=== PATIENT | female | born 1945 | race Caucasian/White ===

== ENCOUNTER → 2021-10-10 15:40 | Outpatient (CLI) | payer MEDICARE, SELFPAY ==
--- NOTE | 2021-10-10 | DI.MG.S_ITS ---
BILATERAL DIGITAL SCREENING MAMMOGRAM 3D/2D WITH CAD: 10/10/2021 CLINICAL: Routine screening. Comparison is made to exams dated: 09/19/2017 mammogram, 06/06/2016 mammogram, and 06/02/2015 mammogram - [facility]. The tissue of both breasts is heterogeneously dense. This may lower the sensitivity of mammography. Current study was also evaluated with a Computer Aided Detection (CAD) system. No significant masses, calcifications, or other findings are seen in either breast. There has been no significant interval change. IMPRESSION: NEGATIVE There is no mammographic evidence of malignancy. A 1 year screening mammogram is recommended. This exam was interpreted at Station ID: [id number]. NOTE: For mammograms, a report in lay terms will be sent to the patient. Approximately 15% of breast malignancies will not be visualized mammographically. In the management of a palpable breast mass, a negative mammogram must not discourage biopsy of a clinically suspicious lesion. Electronically Signed By: Coy melton/laura:10/10/2021 16:08:28 letter sent: Normal Exam ACR BI-RADS Category 1: Negative [id number]
--- NOTE | 2021-10-10 | DI.ECHO.S_ITS ---
[place] [facility]---------+ [facility] +---------+ : : [address] : : : : [id number] : : : : Phone: [phone]+ Echocardiogram Report + + :Name: REINALDO DICKSON Study Date: 10/10/2021 Height: 63.5 in: :[facility] ReadingLocation: Weight: 134 lb : : Gender: Female BSA: 1.6 m2 : :: 1945 Age: 76 yrs BP: 139/89 mmHg: :Reason For Study: MITRAL INSUFFICIENCY : :Ordering Physician: BEN : :KARLENE Performed By: Merari Meredith : :Referring: KARLENE CONTRERAS : + + Interpretation Summary Normal sinus rhythm. Normal LV size; mild concentric LVH; normal wall motion and LV systolic function. EF is 70-75% Stage I diastolic dysfunction. Mild LA enlargement. Mild MAC with mild associated MR Mild AI No prior study available for comparison. Procedure: A two-dimensional transthoracic echocardiogram with color flow and Doppler was performed. The study quality was technically adequate. Comparison is made with the echocardiogram of 09/14/2011. The patient was in sinus rhythm with heart rates between 63-75 bpm during the exam. Left Ventricle: Left ventricular wall thickness is mildly increased. Proximal septal thickening is noted. The left ventricle is normal in size. The ejection fraction is estimated to be 70-75%. Right Ventricle: The right ventricle is normal in size and function. Atria: The left atrium is mildly dilated. Right atrial size is normal. There is no Doppler evidence for an interatrial shunt. Mitral Valve: There is mild mitral annular calcification. There is mild mitral regurgitation. Aortic Valve: The aortic valve is not well visualized. There is no aortic valve stenosis. There is mild aortic regurgitation. Tricuspid Valve: The tricuspid valve is normal in structure and function. There is trace tricuspid regurgitation. Pulmonic Valve: The pulmonic valve is not well visualized. There is no pulmonic valvular regurgitation. Great Vessels: The aortic root is normal size. The ascending aorta is at the upper limits of normal in size. The IVC is of normal diameter and collapses greater than 50% with a sniff. This suggests a low right atrial pressure of 3 mm Hg. Pericardium/ Pleura There is no pericardial effusion. There is no pleural effusion. MMode/2D Measurements & Calculations LVIDd: 4.8 cm LVOT diam: 2.0 cm LVIDs: 2.7 cm Ao root diam: 3.2 cm FS: 44.9 % asc Aorta Diam: 3.4 cm IVSd: 1.1 cm Ao Arch Diam (Prox Trans): 2.6 cm LVPWd: 0.79 cm LV kimble. diameter/BSA (cm/m^2): 2.9 LV sys. diameter/BSA (cm/m^2): 1.6 LA A2 area: 21.5 cm2 RA long axis: 4.7 cm LA A4 area: 17.6 cm2 RA area: 13.2 cm2 LA length (vol): 4.5 cm RA vol: 32.1 ml LA vol: 70.8 ml RA : 19.5 ml/m2 LA vol index: 43.2 ml/m2 IVC diam: 1.1 cm RVD1 (basal): 3.9 cm TAPSE: 2.2 cm Doppler Measurements & Calculations Ao V2 max: 174.6 cm/sec LVOT Max Imnor: 170.1 cm/sec Ao V2 mean: 124.2 cm/sec LV V1 max P.6 mmHg Ao max P.2 mmHg LV V1 VTI: 35.3 cm Ao mean P.8 mmHg CHRISTIAN(I,D): 3.1 cm2 Ao V2 VTI: 35.4 cm CHRISTIAN(V,D): 3.0 cm2 sev ratio: 1.00 CHRISTIAN indexed to BSA (cm^2/m^2): 1.9 MV E max minor: 82.2 cm/sec PA V2 max: 96.9 cm/sec MV A max minor: 100.5 cm/sec PA V2 mean: 70.9 cm/sec MV E/A: 0.82 PA mean P.2 mmHg Med Peak E' Minor: 5.0 cm/sec E/E' med: 16.4 Lat Peak E' Minor: 5.1 cm/sec E/E' lat: 16.1 E/e' average: 16.2 MV dec time: 0.24 sec SV(LVOT): 108.2 ml Electronically signed by: Jocelynn Ndiaye M.D. on Reading Physician:10/10/2021 10:13 PM
== END ==
PROVIDERS: Family Provider Family Medicine; PCP Family Medicine; Referring Provider Family Medicine; Visit Provider Family Medicine
DX: I34.0 Nonrheumatic mitral (valve) insufficiency (principal); Z12.31 Encounter for screening mammogram for malignant neoplasm of breast; I51.7 Cardiomegaly
CPT/HCPCS: 77063; 77067; 93306

== ENCOUNTER → 2023-03-11 | Outpatient (CLI) | payer MEDICARE, SELFPAY ==
--- NOTE | 2023-03-11 | DI.RAD.S_ITS ---
Bone Density Report Name: REINALDO DICKSON Age: 77 Sex: Female Ethnicity: White Date of : 1945 Indication: osteopenia; monitoring treatment; Referring Provider: MARY GUSMAN Study: Bone densitometry was performed. Exam Date: March 11, 2023 Accession number: [id number] Bone Density: Region BMD T-score Z-score Classification AP Spine(L1, L2, L4) 0.888 -1.3 1.2 Osteopenia Femoral Neck (Left) 0.775 -0.7 1.5 Normal Total Hip (Left) 0.804 -1.1 0.8 Osteopenia Femoral Neck (Right) 0.628 -2.0 0.2 Osteopenia Total Hip (Right) 0.706 -1.9 0.0 Osteopenia Total Hip Mean 0.755 -1.5 0.4 Osteopenia World Health Organization criteria for BMD impression classify patients as: Normal (T-score at or above -1.0), Osteopenia (T-score between -1.0 and -2.5), or Osteoporosis (T-score at or below -2.5). 10-year Fracture Risk: FRAX not reported because: Treated for osteoporosis Previous Exams: -- Region Exam Age BMD T-score BMD Change BMD Change Date g/cm2 vs Baseline vs Previous -- AP Spine (L1-L2,L4) 03/11/2023 77 0.888 -1.3 0.073 (9.0%)# 0.073 (9.0%)# 02/22/2017 71 0.814 -2.0 Total Hip(Left) 03/11/2023 77 0.804 -1.1 0.068 (9.3%)# 0.068 (9.3%)# 02/22/2017 71 0.736 -1.7 Total Hip(Right) 03/11/2023 77 0.706 -1.9 0.018 (2.6%)# 0.018 (2.6%)# 02/22/2017 71 0.688 -2.1 -- *Denotes significance at 95% confidence level, LSC for AP Spine = 0.022 g/cm2, LSC for Total Hip = 0.027 g/cm2 # Denotes dissimilar scan types or analysis methods Impression: The patient has low bone mass, based on the Right Femoral Neck T-score. No significant bone loss was observed. Discussion: PATIENT UNDER TREATMENT WITH NO SIGNIFICANT BMD LOSS SINCE LAST EXAM. In an untreated patient, BMD typically declines with age. A lack of decline or gain is usually a sign that treatment is efficacious and fracture risk is reduced. It is important to ask patients whether they are taking their medications and to encourage continued and appropriate compliance with their osteoporosis therapies to reduce fracture risk. It is also important to review their risk factors and encourage appropriate calcium and vitamin D intakes, exercise, fall prevention and other lifestyle measures. Follow-Up: Consider a repeat BMD and Vertebral Fracture Assessment (VFA) exam in 2 years or sooner if medically necessary, to reassess this patient's status. Reported by: ASPEN COLLIER M.D. on 03/11/2023 10:47:00 AM.
== END ==
LOC: RAD 10:16
PROVIDERS: Family Provider Family Medicine; PCP Family Medicine; Referring Provider Family Medicine; Visit Provider Family Medicine
DX: M81.0 Age-related osteoporosis without current pathological fracture (principal); Z78.0 Asymptomatic menopausal state; Z79.83 Long term (current) use of bisphosphonates
CPT/HCPCS: 77080

== ENCOUNTER → 2025-03-26 14:12 | Outpatient (CLI) | payer MEDICARE, SELFPAY ==
--- NOTE | 2025-03-26 14:13 | DI.MG.S_ITS ---
MM screening mammo BI: 03/26/2025. BI-RADS: 1 CLINICAL: 79-year old female for bilateral screening mammogram. Tyrer-Cuzick lifetime risk of 2.8%. No personal or first-degree family history of breast cancer. PRIOR EXAMS 10/10/2021, 09/19/2017, 06/06/2016, 06/02/2015. MAMMOGRAPHY TECHNIQUE: 2D and 3D (tomosynthesis) digital mammographic views obtained, with additional images as needed for full coverage. Current study was also evaluated with a Computer Aided Detection (CAD) system. DENSITY C. The breasts are heterogeneously dense, which may obscure small masses. MAMMOGRAPHY FINDINGS Bilateral: No suspicious mass, asymmetry, microcalcification, or other abnormality seen. IMPRESSION: * No evidence of malignancy. RECOMMENDATIONS Bilateral * Annual screening mammography. OVERALL ASSESSMENT CATEGORY BI-RADS-1: Negative. The [employer] recommends annual screening mammography beginning at age 40 for women with average risk of breast cancer. ELECTRONICALLY SIGNED: Jhoan Martínez M.D. on 03/29/2025 at 06:34:03 PM PT Interpreting Station ID: [id number]
--- NOTE | 2025-03-26 14:14 | DI.RAD.S_ITS ---
1 PROCEDURE: XR DEXA AXIAL SKELETON INDICATIONS: AGE RELATED OSTEOPOROSIS/ROUTINE SCREENING COMPARISON: [facility], , XR DEXA AXIAL SKELETON, 03/11/2023, 10:34. [facility], CR, DEXA AXIAL SKELETON, 02/22/2017, 15:27. FINDINGS: Lumbar Spine: Bone mineral density 0.90 g/cm2, T score -1.2, previously -1.3. Left Femoral Neck: Bone mineral density 0.82 g/cm2, T score -0.3. Previously -0.7 Left Hip: Bone mineral density 0.78 g/cm2, T score -1.3, previously -1.1. Fracture Risk Calculation (when applicable): 10-year fracture risk of a major osteoporotic fracture 9.4 percent and of a hip fracture 1.4 percent. (T score greater or equal to -1.0 to: NORMAL) (T score from -1.1 to -2.4: OSTEOPENIA) (T score less than or equal to -2.5: OSTEOPOROSIS) IMPRESSION: Osteopenia. Slightly improved T-score in the left femoral neck compared to prior imaging Follow-up guidelines as follows: Osteoporosis: Consider a repeat DEXA and Vertebral Fracture Assessment (VFA) exam in 2 years or sooner if medically necessary, to reassess this patient's status. Osteopenia: Consider a repeat DEXA in 2-3 years to reassess this patient's status, or if there is a new clinical indication. Normal: Consider a repeat DEXA in 5 years or sooner, or if there is a new clinical indication. All treatment decisions require clinical judgment and consideration of individual patient factors, including patient preferences, comorbidities, previous drug use, risk factors not captured in the FRAX model (e.g., frailty, falls, vitamin D deficiency, increased bone turnover, interval significant decline in bone density ) and possible under- or over-estimation of fracture risk by FRAX. In addition, the NOF Guide recommends that FDA-approved medical therapies be considered in postmenopausal women and men age >= 50 years with a: * Hip or vertebral (clinical or morphometric) fracture * T-score of <=-2.5 at the spine or hip * Ten-year fracture probability by FRAX of >= 3% for hip fracture or >=20% for major osteoporotic fracture. Dictated by: Ajay Morris M.D. on 03/27/2025 at 18:04 Approved by: Ajay Morris M.D. on 03/27/2025 at 18:04
== END ==
PROVIDERS: Family Provider Family Medicine; PCP Family Medicine; Referring Provider Physician Assistant; Visit Provider Physician Assistant
DX: Z12.31 Encounter for screening mammogram for malignant neoplasm of breast (principal); M81.0 Age-related osteoporosis without current pathological fracture; R92.333 Mammographic heterogeneous density, bilateral breasts
CPT/HCPCS: 77063; 77067; 77080